=== PATIENT | female | born 1995 | race African-American/Black ===

== ENCOUNTER 2018-11-10 11:46 | Emergency (ER) | payer OTHER ==
[~2018-11-10] VITALS: Ht 160 cm; Wt 64.9 kg
[~2018-11-10 11:46] MED LIST: MIRALAX255 GM PO
[2018-11-10 11:49] VITALS: BP 141/81
[2018-11-10] MEDS ORDERED: IBUPROFEN 600600 M1 PO (12:16)
== END 2018-11-10 12:15 | disposition home or self-care (01) ==
LOC: ER 11:46
DX: J02.9 Acute pharyngitis, unspecified (principal)

== ENCOUNTER 2020-09-05 08:27 | Emergency (ER) | payer OTHER ==
[~2020-09-05] VITALS: Ht 157.5 cm; Wt 54.4 kg
[~2020-09-05 08:27] MED LIST changes: +IBUPROFEN 600600 M1 PO
[2020-09-05 09:01] LABS: BASOPHILS 0.9 % (0.0-2.0); EOSINOPHILS 0.3 % (0.0-3.0); HEMATOCRIT 38.1 % (37.0-47.0); HEMOGLOBIN 12.2 gm/dL (12.0-15.0); LYMPHOCYTES 19.7 % (24.0-44.0); MCH 26.2 pg (26.0-34.0); MCHC 32.1 g/dL (28.0-37.0); MCV 81.7 fL (80.0-100.0); MONOCYTES 5.5 % (1.0-8.0); PLATELET COUNT 291 thou/uL (150-400); POLYS 73.6 % (36.0-66.0); RBC 4.66 mil/uL (4.20-5.00); RDW 14.8 % (10.5-14.5); WBC 10.9 thou/uL (4.0-11.0)
[2020-09-05 09:06] LABS: URINE BILIRUBIN NEGATIVE (Negative); URINE BLOOD 2+ (Negative); URINE CLARITY CLOUDY; URINE COLOR YELLOW; URINE GLUCOSE-RANDOM* NEGATIVE (Negative); URINE KETONES NEGATIVE (Negative); URINE NITRITE-REFLEX NEGATIVE (Negative); URINE PROTEIN (DIPSTICK) 2+ (Negative); URINE UROBILINOGEN 0.2 E.U./dl (0.2-1.0)
[2020-09-05 09:07] LABS: URINE LEUKOCYTES-REFLEX 3+ (Negative)
[2020-09-05 09:14] LABS: CALCIUM 9.3 mg/dL (8.5-10.1); CREATININE 1.1 mg/dL (0.6-1.0); POTASSIUM 3.4 mmol/L (3.5-5.1)
[2020-09-05 09:20] LABS: ALBUMIN 3.6 g/dL (3.4-5.0); TOTAL BILIRUBIN 0.4 mg/dL (0.2-1.0); TOTAL PROTEIN 7.8 g/dL (6.4-8.2)
[2020-09-05 09:26] LABS: SQUAMOUS >10 Many /LPF (0-3)
[2020-09-05 09:27] LABS: BACTERIA-REFLEX >30 Many /HPF (None Seen); URINE WBC-REFLEX >25 Many /HPF (0-5)
[2020-09-05 09:28] LABS: CASTS None Seen /LPF (None Seen); CRYSTALS None Seen /LPF (None Seen)
[2020-09-05 09:30] LABS: URINE RBC 3-10 Few /HPF (0-2)
[2020-09-05] MEDS ORDERED: KEFLEX500 M1 PO (10:33)
[2020-09-05 11:01] VITALS: BP 108/70
== END 2020-09-05 11:01 | disposition home or self-care (01) ==
LOC: ER 08:27
PROVIDERS: Emergency Medicine
DX: R19.03 Right lower quadrant abdominal swelling, mass and lump (principal); R10.31 Right lower quadrant pain; Z79.1 Long term (current) use of non-steroidal anti-inflammatories (NSAID)